=== PATIENT | female | born 1970 | race Caucasian/White ===

== ENCOUNTER → 2016-09-22 | Outpatient (REF) ==
[2004-07-27 13:31] VITALS: TEMP 97.9
[~2016-09-22] MED LIST: COZAAR100 MG PO; HCTZ 25MG TAB25 MG PO; MULTIPLE VITAMI1 CAP PO; NASONEX SPRAY17 GM NS; PROAIR HFA0.09 MG/AC IH; RT ADVAIR HFA 1112 G IH; ZYRTEC 10MG10 MG PO
== END ==
LOC: WSOH 12:46
DX: Z02.89 Encounter for other administrative examinations (principal)

== ENCOUNTER → 2017-01-26 | Outpatient (CLI) | payer BC ==
[2004-07-27 13:31] VITALS: TEMP 97.9
== END ==
LOC: MC.RAD 07:40
DX: Z12.31 Encounter for screening mammogram for malignant neoplasm of breast (principal)

== ENCOUNTER → 2020-01-17 | Outpatient (CLI) | payer BC ==
[2004-07-27 13:31] VITALS: TEMP 97.9
== END ==
LOC: MC.RAD 10-29 09:45
DX: Z12.31 Encounter for screening mammogram for malignant neoplasm of breast (principal)

== ENCOUNTER → 2021-08-18 | Outpatient (CLI) | payer BC ==
[2004-07-27 13:31] VITALS: TEMP 97.9
== END ==
LOC: COL.RAD 08-12 10:30
DX: R94.5 Abnormal results of liver function studies (principal)

== ENCOUNTER → 2021-10-26 | Outpatient (CLI) | payer BC ==
[~2021-10-26] VITALS: Ht 157.5 cm; Wt 89.6 kg
[2021-10-26] VITALS (11 sets, daily range): BP systolic 108–128; BP diastolic 73–87; PULSE 82–99; TEMP 98.2
[~2021-10-26] MED LIST changes: +CRESTOR 10MG10 MG PO; +HYZAAR 25 MG-101 TAB PO; +JARDIANCE10 PO; +PRIL40 PO; +TOPROL XL 50MG50 MG PO; +TRULICITY4.5 MG/0.5 SQ
[2021-10-26 09:28] LABS: INR 1.1 (0.8-3.0); PROTHROMBIN TIME 12.4 SECONDS (9.7-12.8)
--- NOTE | 2021-10-26 09:40 | NUR ---
Pt to ct per ambulation. Monitors applied.
--- NOTE | 2021-10-26 10:02 | NUR ---
Specimen obtained by Dr Junior and placed in formalin. Specimen labeled.
== END ==
LOC: COL.RAD 08:49
PROVIDERS: Internal Medicine Gastroenterology
DX: R74.8 Abnormal levels of other serum enzymes (principal); K76.0 Fatty (change of) liver, not elsewhere classified; E78.5 Hyperlipidemia, unspecified
CPT/HCPCS: 32108

== ENCOUNTER → 2022-04-08 | Outpatient (CLI) | payer BC ==
[2004-07-27 13:31] VITALS: TEMP 97.9
== END ==
LOC: MC.RAD 11:23
DX: Z12.31 Encounter for screening mammogram for malignant neoplasm of breast (principal)

== ENCOUNTER → 2022-07-01 | Outpatient (CLI) | payer BC ==
[2004-07-27 13:31] VITALS: TEMP 97.9
== END ==
LOC: COL.RAD 08:42
DX: K75.81 Nonalcoholic steatohepatitis (NASH) (principal); R74.8 Abnormal levels of other serum enzymes

== ENCOUNTER → 2023-10-31 | Outpatient (CLI) | payer BC ==
[2004-07-27 13:31] VITALS: TEMP 97.9
== END ==
LOC: MC.RAD 06:51
DX: Z12.31 Encounter for screening mammogram for malignant neoplasm of breast (principal)